=== PATIENT | female | born 1970 | race Caucasian/White ===

== ENCOUNTER 2022-10-11 00:23 | Emergency (ER) | payer MEDICAID, OTHER ==
[~2022-10-11] VITALS: Ht 165.1 cm; Wt 114.0 kg
[~2022-10-11 00:23] MED LIST: CALC667C4 PO; FERR-43 PO; PREN-88 PO
[2022-10-11 00:25] VITALS: BP 163/86; PULSE 101; RESP 16; TEMP 98.5; O2SAT 98
[2022-10-11] MEDS ORDERED: ONDANSETRON 4MG ODT PO STA (00:52)
== END 2022-10-11 02:25 | disposition home or self-care (01) ==
LOC: ER 00:23
DX: T40.711A Poisoning by cannabis, accidental (unintentional), initial encounter (principal); E11.9 Type 2 diabetes mellitus without complications; I10 Essential (primary) hypertension; Y92.89 Other specified places as the place of occurrence of the external cause
CPT/HCPCS: 93005; 99283